=== PATIENT | male | born 1925 | race Caucasian/White ===

== ENCOUNTER → 2016-06-30 | Outpatient (CLI) | payer MEDICARE ==
[~2016-06-30] MED LIST: ALN70T PO; AMLO10TA82 PO; AMLO5TAB2 PO; BICA50TA4 PO; BUDE6HFA IH; CPR500T PO; FAMO20TA5 PO; FAMO40TA6 PO; HYDR-89 PO; HYDR-91 PO; IBUP-30 PO; LEUP7.5D2 IM; LTN005OP2 OU; NFR150C PO; NITR-33 PO; OXYGEN; PHEN200T16 PO; SNN187T PO; TRM50T PO; [UNRECOGNIZED DRUG - REMARK]
--- OUTSIDE RECORDS SUMMARY | 2016-06-30 12:14 | XMS REPORT | Continuity of Care Document ---
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 03/06/2011 Ot 590.80 PYELONEPHRITIS NOS 03/06/2011 Ot 591 HYDRONEPHROSIS 03/06/2011 Ot 592.1 CALCULUS OF URETER 03/06/2011 Ot V15.82 HISTORY OF TOBACCO USE 03/11/2011 Ot 592.1 CALCULUS OF URETER 01/22/2012 Ot 455.0 INT HEMORRHOID W/O COMPL 01/22/2012 Ot 455.3 EXT HEMORRHOID W/O COMPL 01/22/2012 Ot 562.10 DIVERTICULOSIS COLON (W/O MENT OF HEMORR 01/22/2012 Ot 569.3 RECTAL ANAL HEMORRHAGE 01/22/2012 Ot 569.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 01/22/2012 Ot V10.46 HX-PROSTATIC MALIGNANCY 01/22/2012 Ot V15.3 HX OF IRRADIATION 04/29/2013 MIKE JIMENES, IVAN R Ot 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 04/29/2013 MIKE JIMENES, IVAN R Ot 305.1 TOBACCO USE DISORDER 04/29/2013 MIKE JIMENES, IVAN R Ot 401.9 HYPERTENSION NOS 04/29/2013 MIKE JIMENES, IVAN R Ot 425.4 PRIM CARDIOMYOPATHY NEC 04/29/2013 MIKE JIMENES, IVAN R Ot 427.61 ATRIAL PREMATURE BEATS 04/29/2013 IVAN MCKEON MD R Ot 427.9 CARDIAC DYSRHYTHMIA NOS 04/29/2013 MIKE JIMENES, IVAN R Ot 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 04/29/2013 IVAN MCKEON MD R Ot 530.81 ESOPHAGEAL REFLUX 04/29/2013 IVAN MCKEON MD R Ot 569.3 RECTAL ANAL HEMORRHAGE 04/29/2013 IVAN MCKEON MD Ot 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.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 04/29/2013 IVAN MCKEON MD R Ot 715.90 OSTEOARTHROS NOS-UNSPEC 04/29/2013 IVAN MCKEON MD R Ot 733.00 OSTEOPOROSIS NOS 04/29/2013 IVAN MCKEON MD R Ot 780.4 DIZZINESS AND GIDDINESS 04/29/2013 IVAN MCKEON MD R Ot 780.79 OTH MALAISE FATIGUE 04/29/2013 IVAN MCKEON MD Ot 786.05 SHORTNESS OF BREATH 04/29/2013 IVAN MCKEON MD Ot 786.09 RESPIRATORY ABNORM NEC 04/29/2013 IVAN MCKEON MD Ot V46.2 SUPPLEMENTAL OXYGEN 07/17/2013 ISA MAYO DO Ot 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 04/26/2014 ISA MAYO DO Ot 112.0 04/26/2014 ISA MAYO DO Ot 492.8 05/08/2014 ISA MAYO DO Ot 112.0 05/08/2014 ISA MAYO DO Ot 492.8 08/30/2014 Ot 780.79 08/30/2014 Ot 786.2 08/30/2014 Ot 715.35 08/30/2014 Ot 733.90 08/30/2014 Ot 591 08/30/2014 Ot 592.1 08/30/2014 Ot 790.29 08/30/2014 Ot 592.0 08/30/2014 Ot 592.1 08/30/2014 Ot V72.84 08/30/2014 Ot 592.0 08/30/2014 Ot V72.84 08/30/2014 Ot 785.0 08/30/2014 ISA MAYO DO Ot 496 08/30/2014 Ot 496 08/30/2014 IVAN MCKEON MD Ot 719.46 08/30/2014 IVAN MCKEON MD Ot 724.2 08/30/2014 IVAN MCKEON MD R Ot 729.5 08/30/2014 IVAN MCKEON MD Ot 793.7 08/30/2014 GAEL GOMEZ ISA Swartz Ot 112.0 08/30/2014 GAEL GOMEZ ISA Swartz Ot 492.8 09/14/2014 GAEL ISA Swartz Ot 496 09/14/2014 GAEL ISA Swartz Ot 496 09/14/2014 GAEL ISA Swartz Ot 496 09/14/2014 GAEL GOMEZ ISA Swartz Ot 496 09/14/2014 GAEL GOMEZ ISA Swartz Ot 496 09/14/2014 GAEL ISA Swartz Ot 496 09/14/2014 GAEL ISA Swartz Ot 496 10/20/2014 GAEL GOMEZ ISA Swartz Ot 496 11/09/2014 GAEL GOMEZ ISA Swartz Ot 496 11/28/2014 GAEL GOMEZ ISA Swartz Ot 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 07/09/2015 MIKE JIMENES, IVAN R Ot J44.9 07/22/2015 MIKE JIMENES, IVAN R Ot J44.9 06/25/2016 Ot 591 HYDRONEPHROSIS 06/25/2016 Ot 592.1 CALCULUS OF URETER 06/25/2016 Ot 790.29 OTHER ABNORMAL GLUCOSE 06/25/2016 Ot 592.0 CALCULUS OF KIDNEY 06/25/2016 Ot 592.1 CALCULUS OF URETER 06/25/2016 Ot V72.84 EXAM PRE-OPERATIVE NOS 06/25/2016 Ot 592.0 CALCULUS OF KIDNEY 06/25/2016 Ot V72.84 EXAM PRE-OPERATIVE NOS 06/25/2016 Ot 785.0 TACHYCARDIA NOS 06/25/2016 ISA AMYO DO Ot 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 06/25/2016 Ot 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 Visit Date/Time Discharge Status Pt. Type Provider Facility Loc./Unit Complaint [id number] 11/29/2014 15:00:00 2014 23:59:59 CLS Preadmit ISA MAYO DO [facility] PULM COPD [id number] 11/13/2014 13:00:00 2014 00:01:00 DIS Outpatient ISA MAYO DO [facility] PULM COPD [id number] 04/05/2014 10:46:00 2013 23:59:59 CLS Outpatient ISA MAYO DO [facility] RAD COPD,THRUSH [id number] 12/04/2013 11:49:00 2013 23:59:59 CLS Outpatient IVAN MCEKON MD [facility] RAD LEFT LEG PAIN [id number] 05/30/2013 13:00:00 2013 00:01:00 DIS Outpatient ISA MAYO DO [facility] PULM COPD [id number] 04/28/2013 10:02:00 2012 14:15:00 DIS Inpatient IVAN MCKEON MD [facility] CSD DYSPNEA,NEW ONSET AF [id number] 04/13/2013 12:33:00 2012 23:59:59 CLS Outpatient ISA MAYO DO [facility] RT COPD [id number] 06/30/2016 12:30:00 PEN Preadmit IVAN MCKEON MD [facility] CARD IRREGULAR HEART RATE [id number] 06/25/2015 09:01:00 ACT Outpatient IVAN MCKEON MD [id number] 08/30/2014 15:19:00 Document Registration [id number] 08/30/2014 15:19:00 Document Registration [id number] 08/30/2014 15:19:00 Document Registration [id number] 08/30/2014 15:19:00 Document Registration [id number] 07/18/2013 08:00:00 Document Registration [id number] 01/21/2012 07:22:00 Document Registration [id number] 03/24/2011 08:20:00 Document Registration [id number] 03/10/2011 14:25:00 Document Registration [id number] 03/09/2011 09:19:00 Document Registration [id number] 03/04/2011 09:13:00 Document Registration [id number] 03/03/2011 11:17:00 Document Registration [id number] 02/20/2010 14:10:00 Document Registration [id number] 10/11/2009 10:08:00 Document Registration
== END ==
LOC: CARD 12:11
PROVIDERS: ATTEND Family Medicine
DX: I48.0 Paroxysmal atrial fibrillation (principal)
CPT/HCPCS: 93225; 93226